=== PATIENT | male | born 1985 | race Caucasian/White ===

== ENCOUNTER 2018-05-27 21:22 | Emergency (ER) | payer SELFPAY ==
[~2018-05-27] VITALS: Ht 182.9 cm; Wt 77.1 kg
--- NOTE | 2018-05-27 21:50 | NUR ---
Dr. Lubin at bedside for MSE.
[2018-05-27] MEDS ORDERED: IBUPROFEN 800 MG TABLET ONE (21:59)
[2018-05-27] MEDS ORDERED: IBUPROFEN 800 MG TABLET PO ONE (22:00)
--- NOTE | 2018-05-27 22:27 | NUR ---
Xray at bedside.
--- NOTE | 2018-05-28 00:04 | NUR ---
Patient discharged to home in stable conditon. Written and verbal after care instructions given. Patient verbalizes understanding of instructions. Patient ambulated out of ER with steady gait, no acute signs of distress, VSS, all belongings taken.
[2018-05-28 00:06] VITALS: BP 118/74
== END 2018-05-28 00:06 | disposition home or self-care (01) ==
LOC: ER 21:22
DX: S29.9XXA Unspecified injury of thorax, initial encounter (principal); S09.90XA Unspecified injury of head, initial encounter; V49.9XXA Car occupant (driver) (passenger) injured in unspecified traffic accident, initial encounter; Y93.89 Activity, other specified; Y92.410 Unspecified street and highway as the place of occurrence of the external cause; Y99.8 Other external cause status
CPT/HCPCS: 71111; A4663